=== PATIENT | female | born 1995 | race African-American/Black ===

== ENCOUNTER 2018-02-10 03:19 | Inpatient (IN) ==
[2018-02-10 03:49] LABS: Baso # (Auto) 0.1 th/mm3 (0.0-0.2); Baso % (Auto) 0.8 % (0.0-2.0); Eos # (Auto) 0.1 th/mm3 (0.0-0.4); Eos % (Auto) 2.2 % (0.0-4.0); Lymph # (Auto) 3.2 th/mm3 (1.0-4.8); Lymph % (Auto) 47.8 % (9.0-44.0); Mean Corpuscular HGB Conc 34.3 % (32.0-36.0); Mean Corpuscular Hemoglobin 28.7 pg (27.0-34.0); Mean Corpuscular Volume 83.7 fL (80.0-100.0); Mean Platelet Volume 9.2 fL (7.0-11.0); Mono # (Auto) 0.5 th/mm3 (0.0-0.9); Mono % (Auto) 6.8 % (0.0-8.0); Neut # (Auto) 2.8 th/mm3 (1.8-7.7); Neut % (Auto) 42.4 % (16.0-70.0); Platelet Count 243 th/mm3 (150-450); Red Blood Count 4.18 mil/mm3 (4.00-5.30); Red Cell Distribution Width 18.8 % (11.6-17.2); White Blood Count 6.7 th/mm3 (4.0-11.0)
[2018-02-10 03:57] LABS: Amphetamine Screen,Urine Neg (Neg); Barbiturate Screen,Urine Neg (Neg); Cannabinoid Screen,Urine Neg (Neg); Cocaine Screen,Urine Neg (Neg)
[2018-02-10 04:18] LABS: Opiate Screen,Urine Neg (Neg)
[2018-02-10 04:20] LABS: Anion Gap 10 meq/L (5-15); Blood Urea Nitrogen 5 mg/dL (7-18); Calcium 8.2 mg/dL (8.5-10.1); Carbon Dioxide 21.6 meq/L (21.0-32.0); Chloride 108 meq/L (98-107); Glomerular Filtration Rate 56 mL/min (>89); Glucose,Random 82 mg/dL (74-106); Sodium 140 meq/L (136-145)
[2018-02-10 04:22] LABS: Alcohol 130 mg/dL (0-5); Potassium 3.7 meq/L (3.5-5.1)
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
--- NOTE | 2018-02-10 04:30 | XR ---
EXAM DATE: 02/10/2018 4:24 AM EDT AGE/SEX: 89 years / Female INDICATIONS: Altered mental status. Possible aspiration. CLINICAL DATA: This is the patient's initial encounter. Patient reports that signs and symptoms have been present for 1 day and indicates a pain score of Nonresponsive. MEDICAL/SURGICAL HISTORY: None. None. COMPARISON: No prior exams available for comparison. FINDINGS: A single AP view of the chest demonstrates the lungs to be symmetrically aerated without evidence of mass, infiltrate or effusion. The cardiomediastinal contours are unremarkable. Osseous structures a re intact. CONCLUSION: Negative chest x-ray. Electronically signed by: Kwaku Underwood MD 02/10/2018 4:29 AM EDT
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
[2018-02-10] MEDS ORDERED: Bisacodyl 10 MG Supp RECTAL PRN (04:49)
[2018-02-10] MEDS: Sod Chloride 0.9% Inj 1,000 ML IV.CONT SCH ×2 (05:17→17:23)
[2018-02-10] MEDS: Senna/Docusate Sodium 8.6/50 MG Tablet PO SCH (10:41)
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
[2018-02-10] MEDS: levETIRAcetam 500 MG Tablet PO SCH (13:51)
--- NOTE | 2018-02-10 21:09 | MB ---
cc: Timur Barbour MD, PhD DATE: 02/10/2018 REASON FOR CONSULTATION: Seizure. HISTORY OF PRESENT ILLNESS: This is a pleasant 22-year-old female who has been having seizures since age 16, which she described as grand mal seizures. She normally takes Keppra, which has controlled the seizure. She ran out of this. The patient states she has not had a doctor and has not been taking Keppra. She presented with recurrent seizures. She has been restarted on Keppra, tolerates it well and has had no recurrent seizures. PAST MEDICAL HISTORY: Seizure disorder as noted above, anemia. CURRENT MEDICATIONS: 1. Lactulose. 2. Keppra 1000 mg b.i.d. 3. Ativan p.r.n. 4. Zofran p.r.n. NEUROLOGICAL EXAMINATION: Blood pressure is 115/61, pulse 70, respiratory rate is 20, temperature 98 degrees. Higher cortical function is normal. Cranial nerves are intact. Motor exam: Normal strength and tone of all groups. There is no drift. ____ normal. Reflexes are symmetric. IMAGING STUDIES: CT scan of the brain is normal. LABORATORY DATA: The white count 6700, hemoglobin 12, hematocrit 35%, platelet count 243,000. Sodium 140, potassium 3.7, chloride 108, CO2 is 21.6, BUN is 5, creatinine 0.87, glucose 82. IMPRESSION: Recurrent seizures due to lack of Keppra. RECOMMENDATIONS: Continue Keppra 1000 mg b.i.d. The patient should not drive for at least 6 months of being seizure free. If she is stable tomorrow able to be discharged from a neurological standpoint. Please schedule a followup with me in my office 2 weeks after discharge. Timur Barbour MD, PhD REENA/ct/pc , 05:36 PM , 05:42 PM
[2018-02-11] MEDS: Sod Chloride 0.9% Inj 1,000 ML IV.CONT SCH ×3 (01:15→10:27)
[2018-02-11 05:17] LABS: Baso % (Auto) 0.3 % (0.0-2.0); Eos # (Auto) 0.2 th/mm3 (0.0-0.4); Eos % (Auto) 2.4 % (0.0-4.0); Hematocrit 32.1 % (35.0-46.0); Hemoglobin 10.6 gm/dL (11.6-15.3); Lymph # (Auto) 3.3 th/mm3 (1.0-4.8); Lymph % (Auto) 33.9 % (9.0-44.0); Mean Corpuscular Hemoglobin 28.1 pg (27.0-34.0); Mean Corpuscular Volume 85.1 fL (80.0-100.0); Mean Platelet Volume 9.2 fL (7.0-11.0); Mono # (Auto) 0.6 th/mm3 (0.0-0.9); Mono % (Auto) 6.1 % (0.0-8.0); Neut # (Auto) 5.6 th/mm3 (1.8-7.7); Neut % (Auto) 57.3 % (16.0-70.0); Platelet Count 212 th/mm3 (150-450); Red Blood Count 3.77 mil/mm3 (4.00-5.30); Red Cell Distribution Width 19.1 % (11.6-17.2); White Blood Count 9.8 th/mm3 (4.0-11.0)
[2018-02-11 05:37] LABS: Albumin 2.9 g/dL (3.4-5.0); Anion Gap 8 meq/L (5-15); Aspartate Aminotransferase 14 U/L (15-37); Blood Urea Nitrogen 13 mg/dL (7-18); Calcium 8.3 mg/dL (8.5-10.1); Carbon Dioxide 26.1 meq/L (21.0-32.0); Chloride 108 meq/L (98-107); Glomerular Filtration Rate 80 mL/min (>89); Glucose,Random 80 mg/dL (74-106); Potassium 3.9 meq/L (3.5-5.1); Sodium 142 meq/L (136-145)
[2018-02-11 05:38] LABS: Alanine Aminotransferase 14 U/L (10-53)
[2018-02-11 05:40] LABS: Alkaline Phosphatase 69 U/L (45-117); Total Protein 6.7 g/dL (6.4-8.2)
[2018-02-11] MEDS: levETIRAcetam 500 MG Tablet PO SCH ×2 (08:12)
[2018-02-11] MEDS: Senna/Docusate Sodium 8.6/50 MG Tablet PO SCH ×2 (08:12)
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
== END 2018-02-11 14:52 | disposition home or self-care (01) ==
LOC: NEPC 03:19 → NEDA 05:49 → N05 10:57
PROVIDERS: ADMIT Family Medicine; ATTEND Family Medicine

== ENCOUNTER 2018-02-18 02:55 | Observation (INO) ==
[2018-02-18] MEDS ORDERED: levETIRAcetam 1000mg/100mL Inj 100 ML IV.SIG ONE (03:04)
--- NOTE | 2018-02-18 03:35 | ED ---
HPI General Chief Complaint: Seizure Stated Complaint: Poss Seizure/etoh Time Seen by Provider: 02/18/18 03:02 Source: EMS and old records reviewed Mode of arrival: ambulatory Limitations: altered mental status History of Present Illness HPI Narrative: Is a 22-year-old woman who presents to the emergency department witnessed seizure. She has a history of seizures and noncompliance. She was out at the bar drinking. Patient was given Versed by fire. Patient's sedated and unable to give any history. Related Data Home Medications Medication Instructions Recorded Confirmed ferrous sulfate [iron] 325 mg PO DAILY 01/02/18 01/02/18 levetiracetam [Keppra] 1,000 mg PO Q12H 01/02/18 01/02/18 Previous Rx's Medication Instructions Recorded metronidazole [Flagyl] 500 mg PO Q12H #14 tab 01/03/18 Allergies Allergy/AdvReac Type Severity Reaction Status Date / Time chocolate flavor Allergy Severe THRAOT Verified 01/02/18 19:26 SWELLING AND ITCHY nitrofurantoin Allergy Severe NAUSEA/VOMI Verified 01/02/18 19:26 TING insect venom AdvReac Intermediate rash Verified 01/02/18 19:26 omeprazole AdvReac Intermediate GI UPSET Verified 01/02/18 19:26 Review of Systems ROS Unobtainable ROS Unobtainable: unobtainable due to mental status PMFSH Medical History Medical History Epilepsia (Acute) Surgical History Surgical History Hx of tonsillectomy (Acute) Previous section (Acute) Social History Social History Substance History: Unable to Obtain Second Hand Smoke Exposure: No Smoking Status: Unknown if ever smoked How Often Do You Have a Drink Containing Alcohol: Unable to Obtain Recent Travel in [place] within the Last 8 Weeks: No Recent Out of Country Travel within the Last 8 Weeks: No Immunization History Tetanus Immunization: Unable to Assess Hx Influenza Vaccine This Season: Unable to Assess Exam Narrative Exam Narrative: GENERAL: 22-year-old woman, sedated. Minimally responsive. SKIN: Focused skin assessment warm/dry. HEAD: Atraumatic. Normocephalic. EYES: Pupils equal and round. No scleral icterus. No injection or drainage. ENT: No nasal bleeding or discharge. Mucous membranes pink and moist. NECK: Trachea midline. No JVD. CARDIOVASCULAR: Regular rate and rhythm. No murmur appreciated. RESPIRATORY: No accessory muscle use. Clear to auscultation. Breath sounds equal bilaterally. GASTROINTESTINAL: Abdomen soft, non-tender, nondistended. Hepatic and splenic margins not palpable. MUSCULOSKELETAL: No obvious deformities. No clubbing. No cyanosis. No edema. NEUROLOGICAL: Eyes closed. No response to painful stimulus. Course Reevaluation(s) Reevaluation #1: Patient waking up some, still drowsy. Will discharge when sober. Will try to get a ride for her. Time: 07:22 Initial Documented Vital Signs Temperature 98.5 F 02/18/18 02:57 Pulse Rate 105 H 02/18/18 02:57 Respiratory Rate 16 02/18/18 02:57 Blood Pressure 139/85 02/18/18 02:57 Pulse Oximetry 100 02/18/18 02:57 Last Documented Vital Signs Temperature 98.5 F 02/18/18 02:57 Pulse Rate 83 02/18/18 07:21 Respiratory Rate 13 02/18/18 07:21 Blood Pressure 146/82 H 02/18/18 07:21 Pulse Oximetry 98 02/18/18 07:21 Medical Decision Making MDM Narrative Medical decision making narrative: Is a 22-year-old woman with history of seizure, noncompliance, intoxicated tonight at the reported heavy alcohol intake , seizure-like episode, given Versed, now nearly obtunded. Reviewed records. We will give a dose of Keppra. Check labs. Monitor in the ED. Medical Screen Exam Complete: Yes Emergency Medical Condition: Yes Lab Data Result diagrams: 02/18/18 03:30 02/18/18 03:30 Lab Results 02/18/18 02/18/18 Range/Units 03:30 03:30 WBC 10.0 (4.0-11.0) th/mm3 RBC 4.29 (4.00-5.30) mil/mm3 Hgb 12.0 (11.6-15.3) gm/dL Hct 36.8 (35.0-46.0) % MCV 85.8 (80.0-100.0) fL MCH 27.8 (27.0-34.0) pg MCHC 32.5 (32.0-36.0) % RDW 18.8 H (11.6-17.2) % Plt Count 253 (150-450) th/mm3 MPV 9.5 (7.0-11.0) fL Neut % (Auto) 48.3 (16.0-70.0) % Lymph % (Auto) 42.2 (9.0-44.0) % [place] % (Auto) 7.3 (0.0-8.0) % Eos % (Auto) 1.9 (0.0-4.0) % Baso % (Auto) 0.3 (0.0-2.0) % Neut # (Auto) 4.8 (1.8-7.7) th/mm3 Lymph # (Auto) 4.2 (1.0-4.8) th/mm3 [place] # (Auto) 0.7 (0.0-0.9) th/mm3 Eos # (Auto) 0.2 (0.0-0.4) th/mm3 Baso # (Auto) 0.0 (0.0-0.2) th/mm3 WBC Differential . Differential Comment Auto diff final Sodium 142 (136-145) meq/L Potassium 3.4 L (3.5-5.1) meq/L Chloride 107 (98-107) meq/L Carbon Dioxide 22.7 (21.0-32.0) meq/L Anion Gap 12 (5-15) meq/L BUN 10 (7-18) mg/dL Creatinine 1.01 H (0.50-1.00) mg/dL Estimated GFR 81 L (>89) mL/min Random Glucose 100 (74-106) mg/dL Calcium 8.0 L (8.5-10.1) mg/dL Magnesium 2.2 (1.5-2.5) mg/dL Serum Alcohol 158 H (0-5) mg/dL Discharge Plan Discharge Disposition Patient Disposition: 01 Discharge Home Discharge Condition Condition: Stable Discharge Order Discharge Orders: Discharge Order (Routine); Ordered 02/18/18 Ordered By: Jarrod Viveros Discharge Details Diagnosis: Generalized seizure Physicians Team ED Provider: Jarrod Viveros Primary Care Provider: Primary Care Physici,No Rxs /Orders / Referrals /Forms Prescriptions: No Action levetiracetam [Keppra] 1,000 mg Tablet 1,000 mg PO Q12H RF: 0 ferrous sulfate [iron] 325 mg (65 mg iron) Tablet 325 mg PO DAILY RF: 0 metronidazole [Flagyl] 500 mg tablet 500 mg PO Q12H Qty: 14 RF: 0 Discharge Instructions Patient Printed Instructions: Recurrent Seizures in Adults (ED) Additional Instructions: Avoid alcohol. Do not drive or operate heavy machinery until cleared by neurology. You should avoid being in any situation where if you had a seizure it could be dangerous such as swimming, workking on a ladder, or other such activities. Return to the emergency department for any seizures lasting more than 5 minutes , [id number] seizures, or seizures with prolonged confusion afterwards. Discharge Interventions Interventions: Vital Signs Last Done: 02/18/18 07:21 Status ED Status: Ready for Discharge
[2018-02-18 04:24] LABS: Carbon Dioxide 22.7 meq/L (21.0-32.0); Magnesium 2.2 mg/dL (1.5-2.5); Potassium 3.4 meq/L (3.5-5.1)
[2018-02-18 04:28] LABS: Baso % (Auto) 0.3 % (0.0-2.0); Eos # (Auto) 0.2 th/mm3 (0.0-0.4); Eos % (Auto) 1.9 % (0.0-4.0); Hematocrit 36.8 % (35.0-46.0); Lymph # (Auto) 4.2 th/mm3 (1.0-4.8); Lymph % (Auto) 42.2 % (9.0-44.0); Mean Corpuscular HGB Conc 32.5 % (32.0-36.0); Mean Corpuscular Hemoglobin 27.8 pg (27.0-34.0); Mean Corpuscular Volume 85.8 fL (80.0-100.0); Mean Platelet Volume 9.5 fL (7.0-11.0); Mono # (Auto) 0.7 th/mm3 (0.0-0.9); Mono % (Auto) 7.3 % (0.0-8.0); Neut # (Auto) 4.8 th/mm3 (1.8-7.7); Neut % (Auto) 48.3 % (16.0-70.0); Platelet Count 253 th/mm3 (150-450); Red Blood Count 4.29 mil/mm3 (4.00-5.30); Red Cell Distribution Width 18.8 % (11.6-17.2)
[2018-02-18] MEDS ORDERED: Fosphenytoin Inj 1,000 MGPE in Sodium Chlor 0.9% Inj 50 ML IV.SIG ONE (08:54)
--- NOTE | 2018-02-18 11:34 | CT ---
EXAM DATE: 02/18/2018 11:31 AM EDT AGE/SEX: 22 years / Female INDICATIONS: Altered mental status, seizure today. CLINICAL DATA: This is the patient's initial encounter. Patient reports that signs and symptoms have been present for 1 day and indicates a pain score of 4/10. MEDICAL/SURGICAL HISTORY: None. Tonsillectomy. RADIATION DOSE: 56.37 CTDI (mGy) [place] [facility] [place]23[place]. . TECHNIQUE: CT of the head without contrast. Using automated exposure control and adjustment of the mA and/or kV according to patient size, radiation dose was kept as low as reasonably achievable to ob tain optimal diagnostic quality images. DICOM format image data is available electronically for revi ew and comparison. FINDINGS: Cerebrum: The ventricles are normal for age. No evidence of midline shift, mass lesion, hemorrhage o r acute infarction. No extraaxial fluid collections are seen. Posterior Fossa: The cerebellum and brainstem are intact. The 4th ventricle is midline. The cerebe llopontine angle is unremarkable. Extracranial: The visualized portion of the orbits is intact. Skull: The calvaria is intact. No evidence of skull fracture. CONCLUSION: 1. No acute intracranial abnormality. . Electronically signed by: Jakob Stokes MD 02/18/2018 11:33 AM EDT
[2018-02-18] MEDS: KCL 20 mEq/D5W/NaCl 0.9% Inj 1,000 ML IV.CONT SCH ×2 (12:23→21:14)
[2018-02-18] MEDS ORDERED: Gadobutrol PF 7.5 MMOL/7.5 ML Vial (for RAD) IV.SIG ONE (12:52)
--- NOTE | 2018-02-18 13:00 | MR ---
EXAM DATE: 02/18/2018 12:55 PM EDT AGE/SEX: 22 years / Female INDICATIONS: Seizures. CLINICAL DATA: This is the patient's initial encounter. Patient reports that signs and symptoms have been present for 1 day and indicates a pain score of 0/10. MEDICAL/SURGICAL HISTORY: None. Tonsillectomy. section. COMPARISON: [facility] – [place], [place] HEAD W/O CONTRAST, 02/18/2018. . TECHNIQUE: Multiplanar, multisequence examination of the brain was performed without and with 7 ml Om niscan (gadodiamide) contrast as a single exam dose. FINDINGS: Cerebrum: The ventricles are normal for age. No evidence of midline shift, mass lesion, hemorrhage or acute infarction. No extraaxial fluid collections are seen. The pituitary gland and suprasellar cistern are normal in configuration. White Matter: No significant signal abnormalities are seen in the white matter. Posterior Fossa: The cerebellum and brainstem are intact. The 4th ventricle is midline. The cerebel lopontine angle is unremarkable. The cerebellar tonsils are normal in position. Diffusion Imaging: No focal areas of restricted diffusion are seen. No evidence of acute infarction . Extracranial: The visualized portions of the orbits and paranasal sinuses are unremarkable. Post Contrast: No abnormal areas of parenchymal or dural enhancement. No evidence of blood-brain ba rrier breakdown. CONCLUSION: 1. Negative MR Brain with and without contrast. Electronically signed by: Jakob Stokes MD 02/18/2018 12:58 PM EDT
--- NOTE | 2018-02-18 17:31 | P.HP ---
[facility] Physician: No Primary Care Physician Chief Complaint: Seizures History of Present Illness: Patient is a very pleasant 22-year-old right-handed female who was brought in here by [facility] because of seizure. Patient herself is amnesic of event. Patient with known history of seizure disorder and is on Keppra 500 mg twice a day. Patient states that it was her sisters' birthday and they were out celebrating and were partying at the [facility]. Patient recalls drinking new [place] about 2-3 shots with orange juice. Apparently had a seizure episode there. she was brought in by [facility]. Patient does not recall event and states that when she woke up she was in the emergency room. By report at the ER had another episode of generalized tonic-clonic seizures that lasted for about 30 seconds. Patient received IV Versed in [facility] in route to the ER. she is now more awake Patient now seen at the ER is alert interactive and ambulating. Denies any headache fever chills nausea vomiting. Hungry. There was no incontinence reported during seizure episode But now complains of some burning urination sensation Patient admits to compliance with Keppra that she takes 500 mg twice a day. She follows with Dr. Funes in the OP setting Review of Systems Patient denies any fever or chills no cough no headaches no nausea no vomiting denies any urinary symptoms prior to this denies any melena or hematochezia no bleeding tendencies her last menstrual period was February 16 [facility] - History History Provided By: Food Order Delivery Runner / EMT - Medical History Medical History: Medical History (Last Reviewed 02/18/18 @ 03:34 by Jarrod Viveros MD) Epilepsia (Chronic) - Surgical History Surgical History: Surgical History (Last Reviewed 02/18/18 @ 03:34 by Jarrod Viveros MD) Hx of tonsillectomy (Chronic) Previous section (Chronic) - Tobacco History Second Hand Smoke Exposure: No Smoking Status: Unknown if ever smoked - Alcohol History How Often Do You Have a Drink Containing Alcohol: Unable to Obtain - Substance Use History Substance History: Unable to Obtain - Travel History Recent Travel in the [place] Within the Last 8 Weeks: No Recent Travel Out of the Country Within the Last 8 Weeks: No - Immunization History Tetanus Immunization: Unable to Assess Hx Influenza Vaccine This Season: Unable to Assess Medications and Allergies Active Medications: Active Medications Potassium Chloride/Dextrose/Sod Cl (D5w/Ns + Kcl 20 Meq Inj) 1,000 mls @ 100 mls/hr IV.CONT .Q10H [facility] Last Admin: 02/18/18 12:23 Dose: 100 mls/hr Sodium Chloride (Ns Flush) 2 ml IV.FLUSH PRN PRN PRN Reason: FLUSH AFTER USING IV ACCESS Allergies Allergy/AdvReac Type Severity Reaction Status Date / Time chocolate flavor Allergy Severe THRAOT Verified 01/02/18 19:26 SWELLING AND ITCHY nitrofurantoin Allergy Severe NAUSEA/VOMI Verified 01/02/18 19:26 TING insect venom AdvReac Intermediate rash Verified 01/02/18 19:26 omeprazole AdvReac Intermediate GI UPSET Verified 01/02/18 19:26 Exam Vital signs: Vital Signs 02/18/18 02:57 02/18/18 07:21 02/18/18 09:00 Temperature 98.5 F Pulse Rate 105 H 83 84 Respiratory Rate 16 13 18 Blood Pressure 139/85 146/82 H 138/80 Pulse Oximetry 100 98 98 02/18/18 09:01 02/18/18 09:48 02/18/18 12:23 Temperature Pulse Rate 82 82 Respiratory Rate 16 15 17 Blood Pressure 126/71 126/66 Pulse Oximetry 100 100 Intake & Output 02/17/18 02/18/18 02/18/18 18:59 06:59 18:59 Intake Total 100 / 100 70 / 70 Balance 100 / 100 70 / 70 Weight 68.039 kg Intake: IV 100 / 100 70 / 70 Cerebyx Inj 1,000 MGPE In NS 70 / 70 Inj 50 ML @ 280 mls/hr IV.SIG ONCE ONE Rx#:[id number] Narrative: Patient is now awake alert oriented 3 not in any form of distress interactive HEENT exam anicteric sclerae pink palpebral conjunctiva pupils equally reactive to light extraocular muscle metformin range of motion Neck supple no nuchal rigidity Chest lungs bilateral breath sounds equal no rales no wheezes heart regular rhythm Abdomen flabby soft nontender good bowel sounds Extremities no edema Neurologic exam ANO 3 clear speech cranial nerves grossly intact Motor 5/5 the lower extremities Sensory no deficit DTRs +2 in all extremities Gait slow but steady Results - Labs CBC & Chem 7: 02/18/18 03:30 08/27/18 04:50 Labs: Laboratory Results - last 24 hr 02/18/18 02/18/18 03:30 03:30 WBC 10.0 RBC 4.29 Hgb 12.0 Hct 36.8 MCV 85.8 MCH 27.8 MCHC 32.5 RDW 18.8 H Plt Count 253 MPV 9.5 Neut % (Auto) 48.3 Lymph % (Auto) 42.2 [place] % (Auto) 7.3 Eos % (Auto) 1.9 Baso % (Auto) 0.3 Neut # (Auto) 4.8 Lymph # (Auto) 4.2 [place] # (Auto) 0.7 Eos # (Auto) 0.2 Baso # (Auto) 0.0 WBC Differential . Differential Comment Auto diff final Sodium 142 Potassium 3.4 L Chloride 107 Carbon Dioxide 22.7 Anion Gap 12 BUN 10 Creatinine 1.01 H Estimated GFR 81 L Random Glucose 100 Calcium 8.0 L Magnesium 2.2 Serum Alcohol 158 H - Imaging Impressions Head CT 02/18/18 10:57 CONCLUSION: 1. No acute intracranial abnormality. . Head MRI 02/18/18 12:16 CONCLUSION: 1. Negative MR Brain with and without contrast. Caprini VTE Risk Assessment Caprini VTE Risk Assessment: No/Low Risk (score <= 1) Caprini Risk Assessment Model: Point Value = 1 Point Value = 2 Point Value = 3 Point Value = 5 Age 41-60 Minor surgery BMI > 25 kg/m2 Swollen legs Varicose veins or History of unexplained or recurrent spontaneous Oral contraceptives or hormone replacement Sepsis (< 1 month) Serious lung disease, including pneumonia (< 1 month) Abnormal pulmonary function Acute myocardial infarction Congestive heart failure (< 1 month) History of inflammatory bowel disease Medical patient at bed rest Age 61-74 Arthroscopic surgery Major open surgery (> 45 min) Laparoscopic surgery (> 45 min) Malignancy Confined to bed (> 72 hours) Immobilizing plaster cast Central venous access Age >= 75 History of VTE Family history of VTE Factor V Leiden Prothrombin [id number] Lupus anticoagulant Anticardiolipin antibodies Elevated serum homocysteine Heparin-induced thrombocytopenia Other congenital or acquired thrombophilia Stroke (< 1 month) Elective arthroplasty Hip, pelvis, or leg fracture Acute spinal cord injury (< 1 month) Prophylaxis Regimen: Total Risk Factor Score Risk Level Prophylaxis Regimen 0-1 Low Early ambulation 2 Moderate Order ONE of the following: *Sequential Compression Device (SCD) *Heparin 5000 units SQ BID 3-4 Higher Order ONE of the following medications: *Heparin 5000 units SQ TID *Enoxaparin/Lovenox 40 mg SQ daily (WT < 150 kg, CrCl > 30 mL/min) *Enoxaparin/Lovenox 30 mg SQ daily (WT < 150 kg, CrCl > 10-29 mL/min) *Enoxaparin/Lovenox 30 mg SQ BID (WT < 150 kg, CrCl > 30 mL/min) AND/OR *Sequential Compression Device (SCD) 5 or more Highest Order ONE of the following medications: *Heparin 5000 units SQ TID (Preferred with Epidurals) *Enoxaparin/Lovenox 40 mg SQ daily (WT < 150 kg, CrCl > 30 mL/min) *Enoxaparin/Lovenox 30 mg SQ daily (WT < 150 kg, CrCl > 10-29 mL/min) *Enoxaparin/Lovenox 30 mg SQ BID (WT < 150 kg, CrCl > 30 mL/min) AND *Sequential Compression Device (SCD) Assessment and Plan - Plan 22-year-old female with History fo SZ disorder- states compliance with meds Acute seizure episode with known history of seizure disorder Recent Alcohol use. - Patient states they were celebrating her twin sisters' birthday. - Patient denies chronic alcohol use. had 2-3 shots of [place] with OJ -Advised patient extensively to abstain from alcohol-as this lowers seiziure threshold - Now awake alert interactive -MRI brain negative Patient states takes Keppra 1 g twice a day. as OP -Patient received IV Cerebyx and IV Keppra 1 gm x 1 on initial evaluation - neurochecks q shift - restart keppra at 1 gm bid po -Neurology consulted patient known to Dr. Parekh. Start p.o. diet. no driving for 6 months, avoid heights, advise adequate sleep, avoid sleep deprivation Hypokalemia - IVF with NS + 20 meq KCL - give x 1 po KCL 20 meq - recheck BMP in am Dysuria - had complained of dysuria earlier - get a UA - and treat if indicated Up and ambulate If stable possible discharge next day
[2018-02-18 18:26] LABS: Bilirubin,Urine Negative (Negative); Clarity,Urine Cloudy (Clear); Color,Urine Yellow (Yellw/Straw); Glucose,Urine (UA) Negative (Negative); Hyaline Casts,Urine 6 /lpf (0-3); Leukocyte Esterase,Urine Moderate (Negative); Mucus,Urine Few /lpf (Occasional); Nitrite,Urine Negative (Negative); Specific Gravity,Urine 1.018 (1.002-1.035); Squamous Epithelial Cell,Urine 14 /hpf (0-5)
[2018-02-18] MEDS: levETIRAcetam 500 MG Tablet PO SCH (20:29)
[2018-02-19] MEDS: KCL 20 mEq/D5W/NaCl 0.9% Inj 1,000 ML IV.CONT SCH (06:07)
[2018-02-19 06:33] LABS: Anion Gap 9 meq/L (5-15); Blood Urea Nitrogen 10 mg/dL (7-18); Calcium 7.7 mg/dL (8.5-10.1); Carbon Dioxide 24.2 meq/L (21.0-32.0); Chloride 107 meq/L (98-107); Glomerular Filtration Rate Greater Than 89 mL/min (>89); Glucose,Random 100 mg/dL (74-106); Potassium 4.3 meq/L (3.5-5.1); Sodium 140 meq/L (136-145)
[2018-02-19] MEDS: levETIRAcetam 500 MG Tablet PO SCH (08:26)
--- NOTE | 2018-02-19 09:01 | P.CONNEU ---
History of Present Illness Service: Neurology Primary Care Provider: No Primary Care Physician Chief Complaint: Seizures History of Present Illness: 22-year-old female history of seizures on Keppra and breakthrough seizure brought in for further evaluation. No further events since hospitalization. Keppra dose increase was given IV Celebrex as well x1. Apparently was in a function Alcoholic beverages when the event occurred. Usually gets floaters before episodes. Denies any current headache vision loss or focal weakness. Glucose 100. Ethanol level 158. Normal sodium and magnesium levels. CT brain scan no acute lesion. Review of Systems All other systems reviewed negative except as stated in HPI PMFSH - History History Provided By: Manager Delivery / EMT - Medical History Medical History: Medical History (Last Reviewed 02/18/18 @ 03:34 by Jarrod Viveros MD) Epilepsia (Acute) - Surgical History Surgical History: Surgical History (Last Reviewed 02/18/18 @ 03:34 by Jarrod Viveros MD) Hx of tonsillectomy (Acute) Previous section (Acute) - Tobacco History Second Hand Smoke Exposure: No Tobacco Use In Past 30 Days: Yes Smoking Status: Unknown if ever smoked Tobacco Type: Cigarettes - Alcohol History How Often Do You Have a Drink Containing Alcohol: Unable to Obtain - Substance Use History Substance History: Unable to Obtain - Travel History Recent Travel in the [place] Within the Last 8 Weeks: No Recent Travel Out of the Country Within the Last 8 Weeks: No - Immunization History Tetanus Immunization: Unable to Assess Hx Influenza Vaccine This Season: Unable to Assess Medications and Allergies Active Medications: Active Medications Potassium Chloride/Dextrose/Sod Cl (D5w/Ns + Kcl 20 Meq Inj) 1,000 mls @ 100 mls/hr IV.CONT .Q10H [facility] Last Admin: 02/19/18 06:07 Dose: 100 mls/hr Ceftriaxone Sodium 1,000 mg/ (Sodium Chloride) 100 mls @ 200 mls/hr IV.SIG Q24H [facility] Last Admin: 02/19/18 08:26 Dose: 200 mls/hr Levetiracetam (Keppra) 1,000 mg PO BID [facility] Last Admin: 02/19/18 08:26 Dose: 1,000 mg Sodium Chloride (Ns Flush) 2 ml IV.FLUSH PRN PRN PRN Reason: FLUSH AFTER USING IV ACCESS Allergies Allergy/AdvReac Type Severity Reaction Status Date / Time chocolate flavor Allergy Severe THRAOT Verified 01/02/18 19:26 SWELLING AND ITCHY nitrofurantoin Allergy Severe NAUSEA/VOMI Verified 01/02/18 19:26 TING insect venom AdvReac Intermediate rash Verified 01/02/18 19:26 omeprazole AdvReac Intermediate GI UPSET Verified 01/02/18 19:26 Home Medications Medication Instructions Recorded Confirmed Type ferrous sulfate [iron] 325 mg PO DAILY 01/02/18 01/02/18 History levetiracetam [Keppra] 1,000 mg PO Q12H 01/02/18 01/02/18 History Exam Vital signs: Vital Signs 02/18/18 09:00 02/18/18 09:01 02/18/18 09:48 Temperature Pulse Rate 84 82 Respiratory Rate 18 16 15 Blood Pressure 138/80 126/71 Pulse Oximetry 98 100 02/18/18 12:23 02/18/18 17:28 02/18/18 18:17 Temperature 98.0 F Pulse Rate 82 86 75 Respiratory Rate 17 17 16 Blood Pressure 126/66 121/84 124/75 Pulse Oximetry 100 99 100 02/18/18 20:00 02/18/18 20:48 02/19/18 00:40 Temperature 98.0 F 98.0 F Pulse Rate 81 74 75 Respiratory Rate 16 16 Blood Pressure 123/70 105/57 L Pulse Oximetry 98 98 02/19/18 01:20 02/19/18 04:00 02/19/18 07:59 Temperature 97.9 F 98.1 F Pulse Rate 82 73 61 Respiratory Rate 18 16 Blood Pressure 123/70 99/56 L Pulse Oximetry 98 100 Intake & Output 02/18/18 02/19/18 02/19/18 18:59 06:59 18:59 Intake Total 70 / 70 1360 / 1360 Balance 70 / 70 1360 / 1360 Weight 74.843 kg Intake: IV 70 / 70 1000 / 1000 D5W/NS + KCL 20 mEq Inj 1,000 1000 / 1000 ML @ 100 mls/hr IV.CONT .Q10H [facility] Rx#:[id number] Cerebyx Inj 1,000 MGPE In NS 70 / 70 Inj 50 ML @ 280 mls/hr IV.SIG ONCE ONE Rx#:[id number] Oral 360 / 360 Other: # Voids 1 Date of Last Bowel Movement 02/17/18 Weight On Admission 74.843 kg Narrative: Resting easily arousable oriented x3 articulate no facial asymmetry visual kenny full no pronator drift exam nonfocal - Constitutional no acute distress - Routine HEENT Exam Head: Present: normocephalic Eye: Present: EOMI Results - Labs CBC & Chem 7: 02/18/18 03:30 02/19/18 04:50 Labs: Laboratory Results - last 24 hr 02/18/18 02/19/18 17:53 04:50 Sodium 140 Potassium 4.3 D Chloride 107 Carbon Dioxide 24.2 Anion Gap 9 BUN 10 Creatinine 0.81 Estimated GFR Greater than 89 Random Glucose 100 Calcium 7.7 L Urine Color Yellow Urine Clarity Cloudy H Urine pH 6.0 Ur Specific [place] 1.018 Urine Protein 500 or greater Urine Glucose (UA) Negative Urine Ketones Negative Urine Occult Blood Moderate H Urine Nitrate Negative Urine Bilirubin Negative Urine Urobilinogen Less than 2 Ur Leukocyte Esterase Moderate H Urine RBC 133 H Urine WBC Ur Squamous Epith Cells 14 Hyaline Casts 6 Urine Mucus Few H Micro UA Comment Culture indicated Ur Microscopic Review Not Reportable Urine Culture Comments Culture indicated - Imaging Impressions Head CT 02/18/18 10:57 CONCLUSION: 1. No acute intracranial abnormality. . Head MRI 02/18/18 12:16 CONCLUSION: 1. Negative MR Brain with and without contrast. Review/Management - Diagnosis (1) Generalized seizure Code(s): R56.9 - Unspecified convulsions Status: Acute Current Visit: Yes - Review/Management Plan: Breakthrough seizure in the setting of ethanol consumption. Possible dehydration as well MRI brain scan negative for any acute lesion Recommendations Follow-up EEG. If negative for any active seizures can be discharged from neurologic standpoint follow-up in the outpatient setting Keppra has been increased to 1000 p.o. twice daily. If she has recurrent events may need to add an additional anticonvulsant agent Follow-up Keppra level Medical following urine cultures Hydration, avoidance of ethanol, proper sleep-wake schedule No driving operating any heavy machinery or swimming alone for at least 6 months of being seizure free
[2018-02-19 11:33] VITALS: BP 111/57; RESP 20; TEMP 98.3; O2SAT 99
--- NOTE | 2018-02-19 12:31 | MG ---
cc: Timur Barbour MD, PhD TEST NUMBER: [id number] TECHNIQUE: 17-channel EEG. DESCRIPTION: The background rhythm reveals a symmetrical alpha rhythm, frequency of 8 Hz. There is then a slowing in the theta range with sleep activity identified in terms of sleep spindles. There are no lateralizing features identified. No epileptiform features are identified. During sleep, there is some delta slowing as well with at 3-4 Hz. Photic results in no significant abnormalities. INTERPRETATION: This is a normal EEG. Timur Barbour MD, PhD REENA/hung , 12:12 PM , 12:18 PM
--- NOTE | 2018-02-19 12:46 | P.PNIM ---
Subjective Interval history: Patient is a very pleasant 22-year-old right-handed female who was brought in here by [facility] because of seizure. Patient herself is amnesic of event. Patient with known history of seizure disorder and is on Keppra 500 mg twice a day. Patient states that it was her sisters' birthday and they were out celebrating and were partying at the [facility]. Patient recalls drinking new Fisher about 2-3 shots with orange juice. Apparently had a seizure episode there. she was brought in by [facility]. Patient does not recall event and states that when she woke up she was in the emergency room. By report at the ER had another episode of generalized tonic-clonic seizures that lasted for about 30 seconds. Patient received IV Versed in [facility] in route to the ER. she is now more awake Patient now seen at the ER is alert interactive and ambulating. Denies any headache fever chills nausea vomiting. Hungry. There was no incontinence reported during seizure episode But now complains of some burning urination sensation Patient admits to compliance with Keppra that she takes 500 mg twice a day. She follows with Dr. Brock in the OP setting 02-[address] BROCK HAD EEG CLEARED FOR DISCHARGE MEDICATIONS ADJUSTED NO DRIVING FOR 6 MONTHS UNTIL SEIZURE FREE FOR AT LEAST 6 MONTHS MAY RETURN TO WORK FOLLOW UP WITH PCP Physical Exam Vital signs: Vital Signs 02/18/18 17:28 02/18/18 18:17 02/18/18 20:00 Temperature 98.0 F 98.0 F Pulse Rate 86 75 81 Respiratory Rate 17 16 16 Blood Pressure 121/84 124/75 123/70 Pulse Oximetry 99 100 98 02/18/18 20:48 02/19/18 00:40 02/19/18 01:20 Temperature 98.0 F Pulse Rate 74 75 82 Respiratory Rate 16 Blood Pressure 105/57 L Pulse Oximetry 98 02/19/18 04:00 02/19/18 07:59 02/19/18 11:30 Temperature 97.9 F 98.1 F 98.3 F Pulse Rate 73 61 Respiratory Rate 18 16 20 Blood Pressure 123/70 99/56 L 111/57 L Pulse Oximetry 98 100 99 Intake & Output 02/18/18 02/19/18 02/19/18 18:59 06:59 18:59 Intake Total 70 / 70 1360 / 1360 0 / 0 Balance 70 / 70 1360 / 1360 0 / 0 Weight 74.843 kg Intake: IV 70 / 70 1000 / 1000 0 / 0 D5W/NS + KCL 20 mEq Inj 1,000 1000 / 1000 ML @ 100 mls/hr IV.CONT .Q10H [facility] Rx#:[id number] Cerebyx Inj 1,000 MGPE In NS 70 / 70 Inj 50 ML @ 280 mls/hr IV.SIG ONCE ONE Rx#:[id number] Rocephin Inj 1,000 MG In NS Inj 0 / 0 100 ML @ 200 mls/hr IV.SIG Q24H [facility] Rx#:[id number] Oral 360 / 360 Other: # Voids 1 Date of Last Bowel Movement 02/17/18 Weight On Admission 74.843 kg Narrative: GENERAL: Awake alert and oriented 3 talkative and cooperative SKIN: Warm and dry. HEAD: Atraumatic. Normocephalic. EYES: Pupils equal and round. No scleral icterus. No injection or drainage. EOMI ENT: No nasal bleeding or discharge. Mucous membranes pink and moist. Tongue is midline NECK: Trachea midline. No JVD. Supple CARDIOVASCULAR: Regular rate and rhythm. S1-S2 no S3 or S4 RESPIRATORY: No accessory muscle use. Clear to auscultation. Breath sounds equal bilaterally. GASTROINTESTINAL: Abdomen soft, non-tender, nondistended. Hepatic and splenic margins not palpable. MUSCULOSKELETAL: Extremities without clubbing, cyanosis, or edema. No obvious deformities. NEUROLOGICAL: Awake and alert. No obvious cranial nerve deficits. Motor grossly within normal limits. Five out of 5 muscle strength in the arms and legs. Normal speech. PSYCHIATRIC: Appropriate mood and affect; insight and judgment normal. Results - Labs CBC & Chem 7: 02/18/18 03:30 02/19/18 04:50 Laboratory Results - last 24 hr 02/18/18 02/19/18 17:53 04:50 Sodium 140 Potassium 4.3 D Chloride 107 Carbon Dioxide 24.2 Anion Gap 9 BUN 10 Creatinine 0.81 Estimated GFR Greater than 89 Random Glucose 100 Calcium 7.7 L Urine Color Yellow Urine Clarity Cloudy H Urine pH 6.0 Ur Specific [place] 1.018 Urine Protein 500 or greater Urine Glucose (UA) Negative Urine Ketones Negative Urine Occult Blood Moderate H Urine Nitrate Negative Urine Bilirubin Negative Urine Urobilinogen Less than 2 Ur Leukocyte Esterase Moderate H Urine RBC 133 H Urine WBC Ur Squamous Epith Cells 14 Hyaline Casts 6 Urine Mucus Few H Micro UA Comment Culture indicated Ur Microscopic Review Not Reportable Urine Culture Comments Culture indicated Microbiology 02/18/18 17:53 Clean Catch Urine Urine Culture - Preliminary Immature growth - reincubate - Imaging Impressions Head MRI 02/18/18 12:16 CONCLUSION: 1. Negative MR Brain with and without contrast. - Procedures EEG Assessment and Plan - Plan 22-year-old female with History fo SZ disorder- states compliance with meds Acute seizure episode with no known history of seizure disorder Recent Alcohol use. - Patient states they were celebrating her twin sisters' birthday. - Patient denies chronic alcohol use. had 2-3 shots of Fisher with OJ -Advised patient extensively to abstain from alcohol-as this lowers seiziure threshold - Now awake alert interactive -MRI brain negative Patient states takes Keppra 1 g twice a day. as OP -Patient received IV Cerebyx and IV Keppra 1 gm x 1 on initial evaluation - neurochecks q shift - restart keppra at 1 gm bid po -Neurology consulted patient known to Dr. Parekh. Start p.o. diet. no driving for 6 months, avoid heights, advise adequate sleep, avoid sleep deprivation Hypokalemia - IVF with NS + 20 meq KCL - give x 1 po KCL 20 meq - recheck BMP in am Dysuria - had complained of dysuria earlier - get a UA - and treat if indicated Mild UTI Up and ambulate If stable possible discharge next day Code Status: Full code Discussed Condition With: RN and patient and family and case management Discharge Planning: Discharge to home today No driving or operating heavy machinery at least 6 months until seizure free
--- NOTE | 2018-02-19 12:53 | P.DS ---
Date of admission: 02/18/18 10:58 Primary care physician: No Primary Care Physician Attending physician on discharge: Jah Carson Anticipated date of discharge: 02/19/18 Brief History from admission: Patient is a very pleasant 22-year-old right-handed female who was brought in here by [facility] because of seizure. Patient herself is amnesic of event. Patient with known history of seizure disorder and is on Keppra 500 mg twice a day. Patient states that it was her sisters' birthday and they were out celebrating and were partying at the [facility]. Patient recalls drinking new [place] about 2-3 shots with orange juice. Apparently had a seizure episode there. she was brought in by [facility]. Patient does not recall event and states that when she woke up she was in the emergency room. By report at the ER had another episode of generalized tonic-clonic seizures that lasted for about 30 seconds. Patient received IV Versed in [facility] in route to the ER. she is now more awake Patient now seen at the ER is alert interactive and ambulating. Denies any headache fever chills nausea vomiting. Hungry. There was no incontinence reported during seizure episode But now complains of some burning urination sensation Patient admits to compliance with Keppra that she takes 500 mg twice a day. She follows with Dr. Brock in the OP setting DS: Diagnosis - Discharge Diagnosis (1) Alcohol abuse Status: Acute (2) Noncompliance Status: Chronic (3) Convulsive status epilepticus Status: Chronic (4) Generalized seizure Status: Chronic (5) Epilepsia Status: Chronic (6) Hx of tonsillectomy Status: Chronic (7) Previous section Status: Chronic DS: Medications - Discharge Medications Prescriptions: cephalexin 500 mg PO Q6HR #40 cap ferrous sulfate [iron] 325 mg PO DAILY #30 tab levetiracetam [Keppra] 1,000 mg PO Q12H #60 tab DS: Summary Hospital Course: Patient is a very pleasant 22-year-old right-handed female who was brought in here by [facility] because of seizure. Patient herself is amnesic of event. Patient with known history of seizure disorder and is on Keppra 500 mg twice a day. Patient states that it was her sisters' birthday and they were out celebrating and were partying at the [facility]. Patient recalls drinking new [place] about 2-3 shots with orange juice. Apparently had a seizure episode there. she was brought in by [facility]. Patient does not recall event and states that when she woke up she was in the emergency room. By report at the ER had another episode of generalized tonic-clonic seizures that lasted for about 30 seconds. Patient received IV Versed in [facility] in route to the ER. she is now more awake Patient now seen at the ER is alert interactive and ambulating. Denies any headache fever chills nausea vomiting. Hungry. There was no incontinence reported during seizure episode But now complains of some burning urination sensation Patient admits to compliance with Keppra that she takes 500 mg twice a day. She follows with Dr. Brock in the OP setting 02-[address] BROCK HAD EEG CLEARED FOR DISCHARGE MEDICATIONS ADJUSTED NO DRIVING FOR 6 MONTHS UNTIL SEIZURE FREE FOR AT LEAST 6 MONTHS MAY RETURN TO WORK FOLLOW UP WITH PCP - Time Spent with Patient Total time spent providing and/or coordinating discharge services: Greater than 30 minutes - Quality: VTE Deep Vein Thrombosis/Pulmonary Embolism Present on Admission: No Exam Vital signs: Vital Signs 02/18/18 17:28 02/18/18 18:17 02/18/18 20:00 Temperature 98.0 F 98.0 F Pulse Rate 86 75 81 Respiratory Rate 17 16 16 Blood Pressure 121/84 124/75 123/70 Pulse Oximetry 99 100 98 02/18/18 20:48 02/19/18 00:40 02/19/18 01:20 Temperature 98.0 F Pulse Rate 74 75 82 Respiratory Rate 16 Blood Pressure 105/57 L Pulse Oximetry 98 02/19/18 04:00 02/19/18 07:59 02/19/18 11:30 Temperature 97.9 F 98.1 F 98.3 F Pulse Rate 73 61 Respiratory Rate 18 16 20 Blood Pressure 123/70 99/56 L 111/57 L Pulse Oximetry 98 100 99 Intake & Output 02/18/18 02/19/18 02/19/18 18:59 06:59 18:59 Intake Total 70 / 70 1360 / 1360 0 / 0 Balance 70 / 70 1360 / 1360 0 / 0 Weight 74.843 kg Intake: IV 70 / 70 1000 / 1000 0 / 0 D5W/NS + KCL 20 mEq Inj 1,000 1000 / 1000 ML @ 100 mls/hr IV.CONT .Q10H [facility] Rx#:[id number] Cerebyx Inj 1,000 MGPE In NS 70 / 70 Inj 50 ML @ 280 mls/hr IV.SIG ONCE ONE Rx#:[id number] Rocephin Inj 1,000 MG In NS Inj 0 / 0 100 ML @ 200 mls/hr IV.SIG Q24H [facility] Rx#:[id number] Oral 360 / 360 Other: # Voids 1 Date of Last Bowel Movement 02/17/18 Weight On Admission 74.843 kg Narrative: GENERAL: Awake alert and oriented 3 talkative and cooperative SKIN: Warm and dry. HEAD: Atraumatic. Normocephalic. EYES: Pupils equal and round. No scleral icterus. No injection or drainage. EOMI ENT: No nasal bleeding or discharge. Mucous membranes pink and moist. Tongue is midline NECK: Trachea midline. No JVD. Supple CARDIOVASCULAR: Regular rate and rhythm. S1-S2 no S3 or S4 RESPIRATORY: No accessory muscle use. Clear to auscultation. Breath sounds equal bilaterally. GASTROINTESTINAL: Abdomen soft, non-tender, nondistended. Hepatic and splenic margins not palpable. MUSCULOSKELETAL: Extremities without clubbing, cyanosis, or edema. No obvious deformities. NEUROLOGICAL: Awake and alert. No obvious cranial nerve deficits. Motor grossly within normal limits. Five out of 5 muscle strength in the arms and legs. Normal speech. PSYCHIATRIC: Appropriate mood and affect; insight and judgment normal. Results Procedures completed during hospitalization: EEG Completed studies during hospitalization: Laboratory Results WBC 10.0 th/mm3 (4.0-11.0) 02/18/18 03:30 RBC 4.29 mil/mm3 (4.00-5.30) 02/18/18 03:30 Hgb 12.0 gm/dL (11.6-15.3) 02/18/18 03:30 Hct 36.8 % (35.0-46.0) 02/18/18 03:30 MCV 85.8 fL (80.0-100.0) 02/18/18 03:30 MCH 27.8 pg (27.0-34.0) 02/18/18 03:30 MCHC 32.5 % (32.0-36.0) 02/18/18 03:30 RDW 18.8 % (11.6-17.2) H 02/18/18 03:30 Plt Count 253 th/mm3 (150-450) 02/18/18 03:30 MPV 9.5 fL (7.0-11.0) 02/18/18 03:30 Neut % (Auto) 48.3 % (16.0-70.0) 02/18/18 03:30 Lymph % (Auto) 42.2 % (9.0-44.0) 02/18/18 03:30 [place] % (Auto) 7.3 % (0.0-8.0) 02/18/18 03:30 Eos % (Auto) 1.9 % (0.0-4.0) 02/18/18 03:30 Baso % (Auto) 0.3 % (0.0-2.0) 02/18/18 03:30 Neut # (Auto) 4.8 th/mm3 (1.8-7.7) 02/18/18 03:30 Lymph # (Auto) 4.2 th/mm3 (1.0-4.8) 02/18/18 03:30 [place] # (Auto) 0.7 th/mm3 (0.0-0.9) 02/18/18 03:30 Eos # (Auto) 0.2 th/mm3 (0.0-0.4) 02/18/18 03:30 Baso # (Auto) 0.0 th/mm3 (0.0-0.2) 02/18/18 03:30 WBC Differential . 02/18/18 03:30 Differential Comment Auto diff final 02/18/18 03:30 Sodium 140 meq/L (136-145) 02/19/18 04:50 Potassium 4.3 meq/L (3.5-5.1) D 02/19/18 04:50 Chloride 107 meq/L (98-107) 02/19/18 04:50 Carbon Dioxide 24.2 meq/L (21.0-32.0) 02/19/18 04:50 Anion Gap 9 meq/L (5-15) 02/19/18 04:50 BUN 10 mg/dL (7-18) 02/19/18 04:50 Creatinine 0.81 mg/dL (0.50-1.00) 02/19/18 04:50 Estimated GFR Greater than 89 mL/min (>89) 02/19/18 04:50 Random Glucose 100 mg/dL (74-106) 02/19/18 04:50 Calcium 7.7 mg/dL (8.5-10.1) L 02/19/18 04:50 Magnesium 2.2 mg/dL (1.5-2.5) 02/18/18 03:30 Urine Color Yellow (Yellw/Straw) 02/18/18 17:53 Urine Clarity Cloudy (Clear) H 02/18/18 17:53 Urine pH 6.0 (5.0-8.5) 02/18/18 17:53 Ur Specific [place] 1.018 (1.002-1.035) 02/18/18 17:53 Urine Protein 500 or greater mg/dL (Neg-Trace) 02/18/18 17:53 Urine Glucose (UA) Negative mg/dL (Negative) 02/18/18 17:53 Urine Ketones Negative mg/dL (Negative) 02/18/18 17:53 Urine Occult Blood Moderate (Negative) H 02/18/18 17:53 Urine Nitrate Negative (Negative) 02/18/18 17:53 Urine Bilirubin Negative (Negative) 02/18/18 17:53 Urine Urobilinogen Less than 2 mg/dL (Less than 2) 02/18/18 17:53 Ur Leukocyte Esterase Moderate (Negative) H 02/18/18 17:53 Urine RBC 133 /hpf (0-3) H 02/18/18 17:53 Urine WBC /hpf (0-5) 02/18/18 17:53 Ur Squamous Epith Cells 14 /hpf (0-5) 02/18/18 17:53 Hyaline Casts 6 /lpf (0-3) 02/18/18 17:53 Urine Mucus Few /lpf (Occasional) H 02/18/18 17:53 Micro UA Comment Culture indicated 02/18/18 17:53 Ur Microscopic Review Not Reportable 02/18/18 17:53 Urine Culture Comments Culture indicated 02/18/18 17:53 Serum Alcohol 158 mg/dL (0-5) H 02/18/18 03:[address] 02/18/18 10:57 CONCLUSION: 1. No acute intracranial abnormality. . Head MRI 02/18/18 12:16 CONCLUSION: 1. Negative MR Brain with and without contrast. Labs on day of discharge: Labs from last 24 hours 02/19/18 02/19/18 02/18/18 10:45 04:50 17:53 Sodium 140 Potassium 4.3 D Chloride 107 Carbon Dioxide 24.2 Anion Gap 9 BUN 10 Creatinine 0.81 Estimated GFR Greater than 89 Random Glucose 100 Calcium 7.7 L Urine Color Yellow Urine Clarity Cloudy H Urine pH 6.0 Ur Specific [place] 1.018 Urine Protein 500 or greater Urine Glucose (UA) Negative Urine Ketones Negative Urine Occult Blood Moderate H Urine Nitrate Negative Urine Bilirubin Negative Urine Urobilinogen Less than 2 Ur Leukocyte Esterase Moderate H Urine RBC 133 H Urine WBC Ur Squamous Epith Cells 14 Hyaline Casts 6 Urine Mucus Few H Micro UA Comment Culture indicated Ur Microscopic Review Not Reportable Urine Culture Comments Culture indicated Levetiracetam Pending Preliminary micro results at discharge 02/18/18 17:53 Urine Culture - Preliminary Clean Catch Urine Immature growth - reincubate - Impressions ITS Impressions Head CT 02/18/18 10:57 CONCLUSION: 1. No acute intracranial abnormality. . Head MRI 02/18/18 12:16 CONCLUSION: 1. Negative MR Brain with and without contrast. Discharge Plan - Discharge Disposition Patient Disposition: 01 Discharge Home - Discharge Condition Condition: Stable - Discharge Order Discharge Orders: Discharge Order (Routine); Ordered 02/19/18 Ordered By: Jah Carson - Discharge Details Anticipated Discharge Date: 02/19/18 Discharge Comment: DC TO HOME TODAY - Physicians Team Primary Care Provider: Primary Care Physici,No Attending Provider: Jah Carson Other Providers: Jacobo Parekh MD
[2018-02-19 13:01] VITALS: PULSE 73
== END 2018-02-19 13:30 | disposition home or self-care (01) ==
LOC: NEDA 02:55 → NEPE 02:55 → MERGE 10:58 → NEPGCP 18:08
PROVIDERS: ADMIT Hospitalist; ATTEND Hospitalist